=== PATIENT | female | born 1980 | race Two or more races ===

== ENCOUNTER 2019-08-09 22:46 | Emergency (ER) | payer OTHER ==
[2019-08-09 23:26] VITALS: BP 108/55; PULSE 59; TEMP 98; BMI 18.3
--- NOTE | 2019-08-10 00:28 | PDOC ---
History of Present Illness - General Chief Complaint: Back Pain Stated Complaint: BACK PAIN History Source: Patient Exam Limitations: No Limitations - History of Present Illness Initial Comments: 08/10/19 00:20 Patient is a 38-year-old female with no past medical history here with complaints of right lower back pain that radiates down the thigh x2 days. Patient states she never had problems prior to 2 days, however yesterday started with mild pain progressively worsened through the day to as sharp stabbing pain which is now 8/10. She took Motrin tonight about 5 PM without any relief of symptoms. She has no bowel or bladder incontinence however has pain upon urination. Denies fever, chills, nausea, vomiting, diarrhea, constipation. PMD: Dr. Tavarez PMHX: neg PSOCHX: neg drug, cig, etoh ALL: NKDA GENERAL/CONSTITUTIONAL: [No fever or chills. No weakness. No weight change.] HEAD, EYES, EARS, NOSE AND THROAT: [No change in vision. No ear pain or discharge. No sore throat.] CARDIOVASCULAR: [No chest pain or shortness of breath.] RESPIRATORY: [No cough, wheezing, or hemoptysis.] GASTROINTESTINAL: [No nausea, vomiting, diarrhea or constipation. No rectal bleeding.] GENITOURINARY: [No dysuria, frequency, or change in urination.] MUSCULOSKELETAL: [(+) joint or muscle swelling or pain. No neck or back pain.] SKIN AND BREASTS: [No rash or easy bruising.] NEUROLOGIC: [No headache, vertigo, loss of consciousness, or loss of sensation.] PSYCHIATRIC: [No depression or anxiety.] ENDOCRINE: [No increased thirst. No abnormal weight change.] HEMATOLOGIC/LYMPHATIC: [No anemia, easy bleeding, or history of blood clots.] ALLERGIC/IMMUNOLOGIC: [No hives or skin allergy. No latex allergy.] GENERAL: [The patient is awake, alert, and fully oriented, in no acute distress. ] HEAD: [Normal with no signs of trauma.] EYES: [Pupils equal, round and reactive to light, extraocular movements intact, sclera anicteric, conjunctiva clear.] ENT: [Ears normal, nares patent, oropharynx clear without exudates. Moist mucous membranes.] NECK: [Normal range of motion, supple without lymphadenopathy, JVD, or masses.] LUNGS: [Breath sounds equal, clear to auscultation bilaterally. No wheezes, and no crackles.] HEART: [Regular rate and rhythm, normal S1 and S2 without murmur, rub.] ABDOMEN: [Soft, (+) tenderness right groin, normoactive bowel sounds. No guarding, no rebound. No masses.] EXTREMITIES: [Normal range of motion, no edema. No clubbing or cyanosis. No cords, erythema, or tenderness.] NEUROLOGICAL: [Cranial nerves II through XII grossly intact. Normal speech, normal gait.] PSYCH: [Normal mood, normal affect.] SKIN: [Warm, Dry, normal turgor, no rashes or lesions noted.] Past History - Past Medical History Allergies/Adverse Reactions: Allergies Allergy/AdvReac Type Severity Reaction Status Date / Time No Known Allergies Allergy Verified 08/09/19 23:25 Home Medications: Ambulatory Orders Vitamins (Sjr) - 1 tab PO DAILY 06/18/14 Acetaminophen [Tylenol .Regular Strength -] 650 mg PO Q6H PRN #0 tablet Ibuprofen [Motrin -] 600 mg PO Q6H PRN #0 tablet 06/20/14 Asthma: No Cancer: No Cardiac Disorders: No COPD: No Diabetes: No HTN: No Seizures: No Thyroid Disease: No - Psycho Social/Smoking Cessation Hx Smoking History: Never smoked Have you smoked in the past 12 months: No Information on smoking cessation initiated: No Hx Alcohol Use: No Drug/Substance Use Hx: No Hx Substance Use Treatment: No *Physical Exam - Vital Signs Last Vital Signs Temp Pulse Resp BP Pulse Ox 98.0 F 59 L 17 108/55 L 100 08/09/19 23:23 08/09/19 23:23 08/09/19 23:23 08/09/19 23:23 08/09/19 23:23 Medical Decision Making - Medical Decision Making 08/10/19 00:20 Patient is a 38-year-old female with no past medical history here with complaints of right lower back pain that radiates down the thigh x2 days. Patient states she never had problems prior to 2 days, however yesterday started with mild pain progressively worsened through the day to as sharp stabbing pain which is now 8/10. She took Motrin tonight about 5 PM without any relief of symptoms. She has no bowel or bladder incontinence however has pain upon urination. Denies fever, chills, nausea, vomiting, diarrhea, constipation. DDX: Ovarian torsion, UTI, renal colic, STDs UA and culture if needed Motrin Transvaginal ultrasound Reassess 08/10/19 02:14 Patient endorsed pending US report and further eval and treatment Discharge - Discharge Information Problems reviewed: Yes Clinical Impression/Diagnosis: Abdominal pain Qualifiers: Abdominal location: unspecified location Qualified Code(s): R10.9 - Unspecified abdominal pain - Follow up/Referral Referrals: Daysi Fonseca NP [Primary Care Provider] - - Patient Discharge Instructions - Post Discharge Activity
[2019-08-10] MEDS ORDERED: IBUPROFEN 600 MG TABLET (FP) PO ONE ×2 (00:35→00:55)
[2019-08-10 02:35] LABS: HYALINE CASTS 3 /lpf (0-8); PH,URINE 6.5 (5.0-8.0); URINE APPEARANCE CLOUDY; URINE BACTERIA 255.3 /hpf (NEGATIVE); URINE BILIRUBIN NEGATIVE (NEGATIVE); URINE COLOR YELLOW; URINE GLUCOSE (UA) NEGATIVE (NEGATIVE); URINE KETONE NEGATIVE (NEGATIVE); URINE LEUK ESTERASE 3+ (NEGATIVE); URINE NITRITE NEGATIVE (NEGATIVE); URINE PROTEIN NEGATIVE (NEGATIVE); URINE RBC 4 /hpf (0-4); URINE UROBILINOGEN 0.2 mg/dL (0.2-1.0); URINE WBC 34 /hpf (0-5)
--- NOTE | 2019-08-10 03:08 | PDOC ---
*Physical Exam - Vital Signs Last Vital Signs Temp Pulse Resp BP Pulse Ox 98.0 F 59 L 17 108/55 L 100 08/09/19 23:23 08/09/19 23:23 08/09/19 23:23 08/09/19 23:23 08/09/19 23:23 ED Treatment Course - ADDITIONAL ORDERS Additional order review: Laboratory Results 08/10/19 08/10/19 02:19 00:45 Urine Color Yellow Urine Appearance Cloudy Urine pH 6.5 Ur Specific [place] 1.007 L Urine Protein Negative Urine Glucose (UA) Negative Urine Ketones Negative Urine Blood Negative Urine Nitrite Negative Urine Bilirubin Negative Urine Urobilinogen 0.2 Ur Leukocyte Esterase 3+ H Urine WBC (Auto) 34 Urine RBC (Auto) 4 Urine Casts (Auto) 3 U Epithel Cells (Auto) 4.0 Urine Bacteria (Auto) 255.3 Urine HCG, Qual Negative - RADIOLOGY Radiology Studies Ordered: Category Date Time Status TRANSVAGINAL ULTRASOUND US [US] Stat Ultrasound 08/10/19 00:28 Taken - Medications Given in the ED: ED Medications Discontinued Medications Generic Name Dose Route Start Last Admin Trade Name Freq PRN Reason Stop Dose Admin Ibuprofen 600 mg 08/10/19 00:35 08/10/19 00:52 Motrin - PO 08/10/19 00:36 600 mg ONCE ONE Administration Medical Decision Making - Medical Decision Making 08/10/19 03:02 Patient not turned over P/E Pelvic exam: Normal external genitalia, no labial lesions, small amount of creamy discharge in vault, os closed. Bimanual exam: Tenderness to the right adnexa, minimal tenderness to the left, no CMT Based on the ultrasound reading, exam consistent with ruptured ovarian cyst. 08/10/19 03:05 Laboratory Tests 08/10/19 02:19 Urine Color Yellow Urine Appearance Cloudy Urine pH 6.5 Ur Specific [place] 1.007 L Urine Protein Negative Urine Glucose (UA) Negative Urine Ketones Negative Urine Blood Negative Urine Nitrite Negative Urine Bilirubin Negative Urine Urobilinogen 0.2 Ur Leukocyte Esterase 3+ H Urine WBC (Auto) 34 Urine RBC (Auto) 4 Urine Casts (Auto) 3 U Epithel Cells (Auto) 4.0 Urine Bacteria (Auto) 255.3 UA note noted above will place patient on Macrobid I discussed the physical exam findings, ancillary test results and final diagnoses with the patient. I answered all of the patient's questions. The patient was satisfied with the care received and felt comfortable with the discharge plan and treatment plan. The Patient agrees to follow up with the primary care physician within 24-72 hours. Discharge - Discharge Information Problems reviewed: Yes Clinical Impression/Diagnosis: Abdominal pain Qualifiers: Abdominal location: unspecified location Qualified Code(s): R10.9 - Unspecified abdominal pain UTI (urinary tract infection) Qualifiers: Urinary tract infection type: site unspecified Hematuria presence: without hematuria Qualified Code(s): N39.0 - Urinary tract infection, site not specified Disposition: HOME - Additional Discharge Information Prescriptions: Ibuprofen [Motrin -] 600 mg PO QID #28 tablet Nitrofurantoin Monohyd/M-Cryst [Macrobid -] 100 mg PO BID #14 capsule - Follow up/Referral Referrals: aDysi Fonseca NP [Primary Care Provider] - Joana Francois MD [Staff Physician] - - Patient Discharge Instructions Patient Printed Discharge Instructions: DI for Urinary Tract Infection (UTI), DI for Ovarian Cyst Additional Instructions: Your Discharge Instructions: You must call primary care physician within 24 hours to arrange follow-up. Return to the Emergency Department with any new, persistent or worsening symptoms, for fever, chills, SOB, dizziness or any other concerning changes that may occur. You must follow-up with your DENTAL NURSE for further evaluation. - Post Discharge Activity Work/Back to School Note: Back to Work
--- NOTE | 2019-08-10 03:13 | PDOC ---
*Physical Exam - Vital Signs Last Vital Signs Temp Pulse Resp BP Pulse Ox 98.0 F 59 L 17 108/55 L 100 08/09/19 23:23 08/09/19 23:23 08/09/19 23:23 08/09/19 23:23 08/09/19 23:23 ED Treatment Course - ADDITIONAL ORDERS Additional order review: Laboratory Results 08/10/19 08/10/19 02:19 00:45 Urine Color Yellow Urine Appearance Cloudy Urine pH 6.5 Ur Specific [place] 1.007 L Urine Protein Negative Urine Glucose (UA) Negative Urine Ketones Negative Urine Blood Negative Urine Nitrite Negative Urine Bilirubin Negative Urine Urobilinogen 0.2 Ur Leukocyte Esterase 3+ H Urine WBC (Auto) 34 Urine RBC (Auto) 4 Urine Casts (Auto) 3 U Epithel Cells (Auto) 4.0 Urine Bacteria (Auto) 255.3 Urine HCG, Qual Negative - Medications Given in the ED: ED Medications Discontinued Medications Generic Name Dose Route Start Last Admin Trade Name Yair PRN Reason Stop Dose Admin Ibuprofen 600 mg 08/10/19 00:35 08/10/19 00:52 Motrin - PO 08/10/19 00:36 600 mg ONCE ONE Administration Medical Decision Making - Medical Decision Making 08/10/19 03:12 I received patient on signout. Patient Name: NICK LANE THIS IS A PRELIMINARY REPORT FROM [facility] DATE OF SERVICE: 2019-08-10 00:42:48 IMAGES: 42 EXAM: TRANSVAGINAL ULTRASOUND US WITH DUPLEX DOPPLER HISTORY: Right pelvic pain. LMP 07/11/2019 COMPARISON: None. FINDINGS: Anteverted uterus measuring 9.2 x 5.3 x 5.7 cm. Subserosal anterior mid body uterine leiomyoma measuring 1.1 x 1 x 0.8 cm. Endometrial thickness of 15.5 mm. Free fluid in the cul-de-sac. Right ovary measuring 3.3 x 1.2 x 1.4 cm and left ovary measuring 3.6 x 1.7 x 1.8 cm. No abnormal adnexal masses. Color Doppler demonstrated both ovaries and adnexa. Arterial and venous pulsed-wave Doppler demonstrated both ovaries. IMPRESSION: 1. Anterior subserosal uterine body leiomyoma. 2. Thickened endometrium representing secretory phase of menstrual cycle. 3. Free fluid in the cul-de-sac which may be sequela of ruptured cyst. 4. No evidence of ovarian torsion. 08/10/19 03:12 Pt has WBC in ua; she will go home with macrobid Discharge - Discharge Information Problems reviewed: Yes Clinical Impression/Diagnosis: Abdominal pain Qualifiers: Abdominal location: unspecified location Qualified Code(s): R10.9 - Unspecified abdominal pain UTI (urinary tract infection) Qualifiers: Urinary tract infection type: site unspecified Hematuria presence: without hematuria Qualified Code(s): N39.0 - Urinary tract infection, site not specified Disposition: HOME - Additional Discharge Information Prescriptions: Ibuprofen [Motrin -] 600 mg PO QID #28 tablet Nitrofurantoin Monohyd/M-Cryst [Macrobid -] 100 mg PO BID #14 capsule - Follow up/Referral Referrals: Daysi Fonseca NP [Primary Care Provider] - Joana Francois MD [Staff Physician] - - Patient Discharge Instructions Patient Printed Discharge Instructions: DI for Urinary Tract Infection (UTI), DI for Ovarian Cyst Additional Instructions: Your Discharge Instructions: You must call primary care physician within 24 hours to arrange follow-up. Return to the Emergency Department with any new, persistent or worsening symptoms, for fever, chills, SOB, dizziness or any other concerning changes that may occur. You must follow-up with your ELECTRICAL MAINTENANCE WORKER for further evaluation. - Post Discharge Activity Work/Back to School Note: Back to Work
[2019-08-10] MEDS ORDERED: NITROFURANTOIN MACROCRYSTAL 50 MG CAPSULE (FP) PO SCH (03:15)
[2019-08-10] MEDS ORDERED: NITROFURANTOIN MACROCRYSTAL 50 MG CAPSULE (FP) ONE (03:19)
== END 2019-08-10 03:40 | disposition home or self-care (01) ==
LOC: JER 22:46
DX: N39.0 Urinary tract infection, site not specified (principal); D25.9 Leiomyoma of uterus, unspecified
CPT/HCPCS: 36415; 76830-TC; 81003; 84703; 87491; 87591; 99283-25

== ENCOUNTER → 2021-08-08 | Day surgery (SDC) | payer OTHER | END | disposition home or self-care (01) | LOC: JRADUS-SUR 09:49 | PROVIDERS: ATTEND Obstetrics & Gynecology | PROC: BU4CYZZ Ultrasonography of Uterus and Ovaries using Other Contrast (ICD-10-PCS; principal; 2021-08-08) | DX: D25.9 Leiomyoma of uterus, unspecified (principal) | CPT/HCPCS: 76831 ==

== ENCOUNTER 2024-04-17 04:26 | Day surgery (SDC) | payer OTHER ==
[2024-04-15 14:30] VITALS: BMI 27.1
[2024-04-17] MEDS ORDERED: PROPOFOL 20 ML ONE (07:51)
[2024-04-17] MEDS ORDERED: ONDANSETRON 4 MG/2 ML VIAL IVPUSH PRN (09:03)
[2024-04-17] MEDS ORDERED: LACTATED RINGERS SOLUTION 1,000 ML IV SCH (09:15)
[2024-04-17 09:24] VITALS: TEMP 97.1
[2024-04-17 10:40] VITALS: PULSE 55
[2024-04-17] MEDS ORDERED: oxyCODONE HCL 5 MG TABLET ONE (10:52)
[2024-04-17] MEDS: oxyCODONE HCL 5 MG TABLET PO PRN (10:59)
[2024-04-17 11:52] VITALS: BP 104/66; RESP 18
== END 2024-04-17 12:39 | disposition home or self-care (01) ==
LOC: JASU-SURG 04:26
PROVIDERS: ATTEND Obstetrics & Gynecology Obstetrics
PROC: 0U5B8ZZ Destruction of Endometrium, Via Natural or Artificial Opening Endoscopic (ICD-10-PCS; principal; 2024-04-17 08:00)
DX: N92.0 Excessive and frequent menstruation with regular cycle (principal)
CPT/HCPCS: 81025; 88305-TC; 94760